=== PATIENT | female | born 1965 | race American Indian/Alaskan Native ===

== ENCOUNTER 2021-01-05 14:53 | Outpatient (CLI) | payer OTHER ==
[2021-01-05 15:51] LABS: Basophils # (Auto) 0.1 K/mm3 (0.0-0.1); Basophils % (Auto) 0.7 % (0.0-1.8); Eosinophils # (Auto) 0.2 K/mm3 (0.0-0.4); Hematocrit 43.8 % (30.3-42.9); Hemoglobin 14.4 gm/dl (10.1-14.3); Lymphocytes # (Auto) 2.9 K/mm3 (1.2-5.4); Mean Corpuscular HGB Conc 33 % (30-34); Mean Corpuscular Volume 88 fl (79-97); Monocytes # (Auto) 0.6 K/mm3 (0.0-0.8); Monocytes % (Auto) 6.7 % (0.0-7.3); Platelet Count 267 K/mm3 (140-440); Red Cell Distribution Width 16.8 % (13.2-15.2)
[2021-01-05 16:09] LABS: Alanine Aminotransferase 13 units/L (7-56); Albumin 3.9 g/dL (3.9-5); Blood Urea Nitrogen 7 mg/dL (7-17); Chol/HDL Ratio 3.05 %; HDL Cholesterol 55 mg/dL (40-59); Hemolysis Index 82; LDL Cholesterol,Direct 113 mg/dL (50-130)
[2021-01-05 16:10] LABS: BUN/Creatinine Ratio 10
[2021-01-05 16:11] LABS: ABG Base Excess 1.2 mmol/L (-2.0-3.0); ABG Methemoglobin 0.5 % (0.0-1.5); ABG Oxygen Saturation 96.6 % (95.0-99.0); ABG PCO2 42.2 mm Hg; ABG PH 7.408 pH Units (7.350-7.450); ABG PO2 82.8 mm Hg (80.0-90.0)
--- NOTE | 2021-01-05 16:25 | XRay Report ---
CHEST 2 VIEWS INDICATION: PNEUMONIA. COMPARISON: None FINDINGS: Support devices: None. Heart: Within normal limits. Lungs/pleura: No acute air space or interstitial disease. No pneumothorax. Additional findings: None. IMPRESSION: Unremarkable chest films. Signer Name: Corky Williamson Jr, MD Signed: 01/05/2021 4:16 PM Workstation Name: [id number]
== END 2021-01-05 14:54 | disposition home or self-care (01) ==
LOC: XRAY 14:53
PROVIDERS: ATTEND Internal Medicine
DX: U07.1 COVID-19 (principal); J12.82 Pneumonia due to coronavirus disease 2019; Z86.19 Personal history of other infectious and parasitic diseases
CPT/HCPCS: 36415; 71046; 80053; 80061; 82550; 82728; 82803; 83615; 84436; 84443; 85025; 85379; 86140